=== PATIENT | male | born 1960 | race Two or more races ===

== ENCOUNTER 2020-06-14 13:52 | Emergency (ER) | payer SELFPAY ==
[~2020-06-14] VITALS: Ht 175.3 cm; Wt 89.8 kg
[2020-06-14 16:25] VITALS: BP 151/98
[2020-06-14] MEDS ORDERED: KETOROLAC TROMETH 30 MG/ML 1ML VIAL IV ONE (17:15)
[2020-06-14] MEDS ORDERED: methylPREDNISolone SOD SUCC 125 MG/2 ML VL IV ONE (17:15)
[2020-06-14] MEDS ORDERED: CLINDAMYCIN 600MG IV 50 ML IV ONE (17:15)
== END 2020-06-14 18:37 | disposition home or self-care (01) ==
LOC: ER 13:52
DX: J02.9 Acute pharyngitis, unspecified (principal); L03.211 Cellulitis of face
CPT/HCPCS: 96365; 96375; 99284; J1885; J2930; J3490

== ENCOUNTER 2020-06-16 12:33 | Emergency (ER) | payer MEDICAID, OTHER ==
[~2020-06-16] VITALS: Ht 175.3 cm; Wt 89.8 kg
[2020-06-16 14:45] LABS: Basophils # (auto) 0.1 10 ^3/uL (0-0.2); Basophils % (auto) 0.5 % (0.0-2.0); Eosinophils # (auto) 0 10 ^3/uL (0-0.8); Eosinophils % (auto) 0.1 % (0.0-7.0); Hemoglobin 13.6 g/dL (13.5-17.5); Lymphocytes # (auto) 1.9 10 ^3/uL (0.4-5.4); Lymphocytes % (auto) 14.6 % (10.0-50.0); Mean Corpuscular Hemoglobin 29.7 pg (28.0-32.0); Mean Corpuscular Hgb Conc. 34.1 g/dL (32.0-36.0); Monocytes # (auto) 1.1 10 ^3/uL (0-1.3); Monocytes % (auto) 8.1 % (0.0-12.0); Neutrophils # (auto) 10.2 10 ^3/uL (1.6-8.6); Neutrophils % (auto) 76.7 % (37.0-80.0); Platelet Count (auto) 293 10^3/uL (140-450); Red Cell Distribution Width 14.6 % (11.8-14.3); White Blood Cell 13.2 10^3/uL (4.4-10.8)
[2020-06-16 15:05] LABS: Albumin 3.6 g/dL (3.4-5.0); Calcium 8.9 mg/dL (8.5-10.1); Potassium 3.9 mmol/L (3.5-5.1)
[2020-06-16 15:07] LABS: BUN/Creatinine Ratio 19.4; Bilirubin, Total 0.8 mg/dL (0.2-1.0); Total Protein 8.2 g/dL (6.4-8.2)
[2020-06-16] MEDS ORDERED: IOHEXOL 300 MG/ML 100ML BOTTLE IJ ONE (15:18)
[2020-06-16] MEDS ORDERED: cefTRIAXone 1GM/50ML D5W 50 ML IV ONE (16:30)
[2020-06-16] MEDS ORDERED: KETOROLAC TROMETH 30 MG/ML 1ML VIAL IV ONE (16:30)
[2020-06-16] MEDS ORDERED: SODIUM CHLORIDE 0.9% 1,000 ML IV ONE (16:30)
[2020-06-16] MEDS ORDERED: cloNIDine HCL 0.1 MG TAB ONE (19:52)
[2020-06-16 19:57] VITALS: BP 174/114
[2020-06-16] MEDS ORDERED: cloNIDine HCL 0.1 MG TAB PO ONE (20:00)
== END 2020-06-16 20:09 | disposition short-term general hospital (02) ==
LOC: ER 12:33
DX: R22.1 Localized swelling, mass and lump, neck (principal); J39.8 Other specified diseases of upper respiratory tract; Z20.822 Contact with and (suspected) exposure to COVID-19
CPT/HCPCS: 36415; 70491; 80053; 85025; 87070; 87426; 87880; 96365; 96366; 96375; 99285; J0696; J1885; Q9967